=== PATIENT | female | born 1985 | race Caucasian/White ===

== ENCOUNTER → 2016-09-06 | Outpatient (CLI) | payer OTHER ==
--- NOTE | 2016-09-06 16:54 | Diagnostic Imaging Report ---
PROCEDURE: US PELVIC (NON OB). TECHNIQUE: Multiple real-time grayscale images were obtained over the pelvis in various projections transabdominally. IMPRESSION: Hirsutism. FINDINGS: The uterus measures 6.4 x 2.7 x 3.4 cm. The endometrial stripe is 4 mm. The right ovary measures 3.6 x 1.6 x 1.9 cm. The ovary has normal blood flow and appears grossly normal. The left ovary measures 3.6 x 2.0 x 2.1 cm. The left ovary has normal blood flow. There are some follicles on the left ovary but insufficient to warrant a diagnosis of polycystic ovary. IMPRESSION: There are some follicles present on the ovaries but insufficiency in quantity to be termed as polycystic ovaries. Dictated by: Dictated on workstation # [id number]
== END ==
LOC: RAD 14:43
PROVIDERS: ATTEND Obstetrics & Gynecology
DX: E28.2 Polycystic ovarian syndrome (principal); L68.0 Hirsutism; R10.2 Pelvic and perineal pain
CPT/HCPCS: 76856

== ENCOUNTER → 2016-09-20 | Outpatient (CLI) | payer OTHER ==
[2016-09-20 15:42] LABS: BASOPHILS % (AUTO) 1 % (0-2); EOSINOPHILS # (AUTO) 0.2 10^3uL; EOSINOPHILS % (AUTO) 3 % (0-4); LYMPHOCYTES # (AUTO) 1.7 X10^3; MEAN CORPUSCULAR HEMOGLOBIN 28.8 PG (26.0-34.0); MEAN CORPUSCULAR HGB CONC 33.8 g/dL (31.0-37.0); MEAN CORPUSCULAR VOLUME 85 FL (80-100); MEAN PLATELET VOLUME 9.4 FL (6.0-9.5); MONOCYTES # (AUTO) 0.5 X10^3; MONOCYTES % (AUTO) 8 % (3-11); NEUTROPHILS % (AUTO) 56 % (51-67); PLATELET COUNT 245 10^3uL (150-450); WHITE BLOOD COUNT 5.33 10^3uL (4.0-11.0)
[2016-09-20 15:50] LABS: ALBUMIN 4.2 g/dL (3.4-5.0); ANION GAP 16.4 MEQ/L (3-15); TOTAL PROTEIN 7.6 g/dL (6.4-8.5)
== END ==
LOC: LAB 15:27
PROVIDERS: ATTEND Obstetrics & Gynecology
DX: R10.2 Pelvic and perineal pain (principal)
CPT/HCPCS: 36415; 80053; 85025

== ENCOUNTER 2016-09-27 06:28 | Day surgery (SDC) | payer OTHER ==
[~2016-09-27] VITALS: Ht 157.5 cm; Wt 94.1 kg
[~2016-09-27 06:28] MED LIST: LACTATED RINGERS 1,000 ML IV SCH; SODIUM CHLORIDE FLUSH 3 ML SYR IV PRN
[2016-09-27 06:33] VITALS: BP 141/90
[2016-09-27] MEDS ORDERED: BUPIVACAINE/EPINEPHRINE 0.5%-1:200,000 (MARCAINE) 30 ML VIAL INJ ONE (06:51)
[2016-09-27] MEDS ORDERED: MIDAZOLAM 2 MG/2 ML (VERSED) VIAL ONE (07:07)
[2016-09-27] MEDS ORDERED: PROPOFOL 20 ML IV ONE (07:07)
[2016-09-27] MEDS ORDERED: ALFENTANIL 500 MCG/ML (ALFENTA) 5 ML AMP IV ONE (07:07)
[2016-09-27] MEDS ORDERED: ONDANSETRON 2 MG/ML (Z0FRAN) 2 ML VIAL ONE (07:49)
[2016-09-27] MEDS ORDERED: diphenhydrAMINE 50 MG/ML INJ (BENADRYL) ONE (07:49)
[2016-09-27] MEDS ORDERED: ROCURONIUM 50 MG/5 ML (ZEMURON) VIAL IV ONE (07:58)
[2016-09-27] MEDS ORDERED: NEOSTIGMINE 1 MG/ML SYRINGE ONE (08:17)
[2016-09-27] MEDS ORDERED: GLYCOPYRROLATE 0.2 MG/ML (ROBINUL) 1 ML VIAL ONE (08:17)
[2016-09-27 09:15] VITALS: BP 134/88
[2016-09-27 09:35] VITALS: BP 114/74
[2016-09-27] MEDS ORDERED: HYDROcodone/APAP 5 MG/325 MG (NORCO) TAB PO PRN (09:45)
[2016-09-27] MEDS ORDERED: HYDR-3702 PO (09:47)
--- NOTE | 2016-09-27 09:49 | Discharge Instructions (E) ---
Discharge Instructions Instructions No lifting >15 lbs for 1 week. Stitches dissolve, shower in 24 hours, no soaking baths for 1 week. No other restrictions at home. May return to work without any other restriction. Call with severe fever, pain, or vaginal bleeding. Doctor's Appointment [address] Acosta Discharge Diet: Regular PAIGE ACOSTA MD September 27, 2016 09:49
[2016-09-27 09:51] VITALS: BP 108/75
--- NOTE | 2016-09-27 09:57 | Operative Report (E) ---
Operative Report (E) 09/27/16 09:50 Pre-Operative Diagnosis: left pelvic pain Post-Operative Diagnosis: same Procedure: Diagnostic laparoscopy, lysis of adhesions, peritoneal biopsy Surgeon: Bri Pediatrician: None Anesthesia: GETA EBL: 10cc Findings: Normal uterus, bilateral tubes and ovaries. Moderate filmy adhesions along descending colon to anterior abdomen, overlying left adnexa. small peritoneal implants consistent with endometriosis in posterior cul de sac and right ovarian fossa. Small filmy adhesions along anterior liver, likely from cholecystectomy procedure. PAIGE ACOSTA MD September 27, 2016 09:57
--- NOTE | 2016-09-27 12:40 | PAIN MANAGEMENT ---
Date of note: 09/27/2016 Procedure: Peripheral IV placement This is a 31-year-old female patient who presents to the [facility] for surgery today. Anesthesia was consulted by ASC unable to obtain peripheral IV. Informed consent was obtained for peripheral IV placement. Aseptic technique utilized. A 20-gauge peripheral IV was placed in the patient's AC x1 attempt. The patient tolerated the procedure well. It was secured in place and flushed easily.
--- NOTE | 2016-09-27 12:55 | OPERATIVE REPORT ---
DATE OF OPERATION: 09/27/2016 PRE-OPERATIVE DIAGNOSIS: Left pelvic pain POST-OPERATIVE DIAGNOSIS: Left pelvic pain OPERATIVE PROCEDURE: 1. Diagnostic laparoscopy. 2. Lysis of adhesions. 3. 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 There were moderate filmy adhesions along the descending colon on the left overlying the left adnexa. There were 3 small peritoneal implants consistent with endometriosis, 2 in the posterior cul-de-sac and 1 in the right ovarian fossa. There were filmy adhesions along the anterior liver edge overlying the gallbladder region, most consistent with her previous procedure of cholecystectomy. DESCRIPTION OF PROCEDURE: After confirming the validity of the informed consent, the patient was transported to the operating suite where she was placed in a dorsal lithotomy position after general anesthesia was administered without event. The patient was sterilely prepped and draped in the usual fashion. A Pillai was placed in the bladder. The cervix was grasped with a single-tooth tenaculum and a Carlos cannula was placed against the cervix and tenaculum for intraoperative manipulation. An infraumbilical skin incision was made and a 5-mm Optiview trocar was placed intraperitoneally without difficulty using the diagnostic laparoscope. Then 5-mm trocars were placed in the right and left lower quadrant under direct visualization. The patient was placed in Trendelenburg position and laparoscopy was carried out with the findings as noted above. Using the Harmonic scalpel the left colic adhesions were divided without difficulty. Once normal anatomy was returned the adnexa were inspected thoroughly and found to be completely normal, mobile, with no abnormal positioning. The posterior peritoneal implants were then excised with the Harmonic scalpel and sent for pathology. The liver adhesions were then lysed with the Harmonic scalpel without difficulty. All surgical beds were inspected and found to be thoroughly hemostatic. The bilateral trocars were removed under visualization without difficulty. The pneumoperitoneum was deflated and the umbilical trocar was removed. The incisions were infiltrated with a total of 13 mL of 0.5% Marcaine. The skin was closed with 4-0 Vicryl interrupted subcuticular sutures. The cervix was released and found to be hemostatic. The Pillai catheter was removed. All needle, sponge, and instrument counts were correct x2. The patient tolerated the procedure well and was transferred to PACU in good condition.
== END 2016-09-27 10:06 | disposition home or self-care (01) ==
LOC: ASC 06:28
PROVIDERS: ATTEND Obstetrics & Gynecology
DX: R10.2 Pelvic and perineal pain (principal); K66.0 Peritoneal adhesions (postprocedural) (postinfection); E26.9 Hyperaldosteronism, unspecified; E28.2 Polycystic ovarian syndrome; E66.9 Obesity, unspecified; Z68.37 Body mass index [BMI] 37.0-37.9, adult
CPT/HCPCS: 58662; 81025; J1200; J2250; J2405; J2710; J3490